=== PATIENT | female | born 1955 | race Native Hawaiian/Other Pacific Islander ===

== ENCOUNTER 2021-10-06 11:00 | Outpatient (CLI) | payer OTHER ==
[2021-10-06 12:09] LABS: PLATELET COUNT 190 K/uL (152-353)
[2021-10-06 12:23] LABS: POTASSIUM 4.1 mmol/L (3.6-5.2)
== END 2021-10-06 19:10 | disposition home or self-care (01) ==
LOC: LABW 11:00
PROVIDERS: ATTEND Internal Medicine
DX: U07.1 COVID-19 (principal)
CPT/HCPCS: 36415; 80053; 85027; 85379; 86140

== ENCOUNTER 2022-04-25 10:03 | Outpatient (CLI) | payer OTHER | END 2022-04-25 19:04 | disposition home or self-care (01) | LOC: US 10:03 | PROVIDERS: ATTEND Internal Medicine | DX: I73.9 Peripheral vascular disease, unspecified (principal); R60.0 Localized edema; E11.9 Type 2 diabetes mellitus without complications; R10.9 Unspecified abdominal pain ==

== ENCOUNTER 2023-04-19 13:24 | Outpatient (CLI) | payer OTHER | END 2023-04-19 20:55 | disposition home or self-care (01) | LOC: RAD 13:24 | PROVIDERS: ATTEND Nurse Practitioner Family | DX: M54.59 Other low back pain (principal); M53.3 Sacrococcygeal disorders, not elsewhere classified ==